=== PATIENT | female | born 2000 | race Caucasian/White ===

== ENCOUNTER 2020-07-13 19:00 | Emergency (ER) | payer SELFPAY ==
[~2020-07-13] VITALS: Ht 157.5 cm; Wt 58.0 kg
[2020-07-13 19:06] VITALS: BP 128/88
== END 2020-07-13 22:47 | disposition left against medical advice (07) ==
LOC: ER 19:00
DX: Z53.21 Procedure and treatment not carried out due to patient leaving prior to being seen by health care provider (principal)
CPT/HCPCS: 93005